=== PATIENT | female | born 1950 | race Caucasian/White ===

== ENCOUNTER → 2017-11-14 | Outpatient (CLI) | payer MEDICARE, OTHER ==
[2014-02-04 09:01] VITALS: BMI 36.4
[~2017-11-14] MED LIST: ALB0.5 INH; AMI10 PO; AMIT-104 PO; AZIT500T47 PO; CA C1TAB6 PO; CETI-175 PO; CETI10CA8 PO; CHOL10005 PO; CHOL200021 PO; CLAR-1 PO; CLIN300C99 PO; CLOB15OI16 TP; DIAZ2TAB74 PO; FLUT16SP20 NS; GUAR1TAB15 PO; HYDR12.556 PO; HYDR12.558 PO; LEV112 PO; LEV125 PO; LEV75 PO; LEVO137T23 PO; LEVO500T83 PO; LIS10 PO; LISI-353 PO; LISI20TA29 PO; METR-160 PO; MON10 PO; NYST15CR32 TP; OND4 PO; OXYC1TAB54 PO; PANT40TA65 PO; PRED20TA6 PO; RANI-375 PO; SCOT TD; SERT-184 PO; SIM10 PO; SIMV-49 PO; TRAM-420 PO; [UNRECOGNIZED DRUG - CODE] PO; [UNRECOGNIZED DRUG - OTHER]
--- NOTE | 2017-11-14 14:37 | RADIOLOGY IMAGING REPORT ---
FACILITY: [facility] [place] PATIENT NAME: Jyoti Cochran : 1950 MR: [id number] V: [id number] EXAM DATE: ORDERING PHYSICIAN: ROSIBEL LE TECHNOLOGIST: [place] [facility] [place]: [place]yoti Cochran : 1950 Visit/Account:[id number] Date of Sevice: 11/14/2017 DEXA Scan Clinical history: Postmenopausal. Comparison: DEXA scan from 10/22/2013. LUMBAR SPINE: The bone mineral density (BMD) measured from L1-L4 correlates with a Z-score of 1 and a T-score of 0. 2 which is Normal as defined by the World Health Organization. The corresponding risk of fracture in the lumbar spine is Not increased compared with a young adult reference population. This value has increase by five % since the prior study. More than 5% change is considered significant. HIP: Bone mineral density (BMD) measured in the LEFT total hip region correlates with a Z-score 0.5 and a T-score of -0.3 which is normal as defined by the World Health Organization. The corresponding risk of fracture in the hip is Not i ncreased compared to a young adult reference population. This value has decrease by 0.5 % since the p rior study. More than 5% change is considered significant. T score left femoral neck -1.7 Bone mineral density (BMD) measured in the Femoral Neck region measures 0.795 g/cm?. IMPRESSION: 1. Lumbar spine: Normal. There has been 5% increase in the bone mineral density since the previous exam. 2. Left Total Hip: Normal. There has been 0.5% decrease in the bone mineral density since the previ ous exam. 3. Femoral Neck: Bone Mineral Density is 0.795 g/cm? The next DEXA scan of this patient should include the following sites: L1-L4 and the left hip. FRAX? WHO Fracture Risk Assessment Tool link: <http://www.shef.ac.uk/FRAX/tool.jsp?locationValue=9> PLEASE NOTE: 1) The World Health Organization defines low BMD as follows: T-score Normal > -1 Osteopenia < -1 and > -2.5 Osteoporosis < -2.5 without fractures Established osteoporosis < -2.5 with fractures 2) In general, you may wish to consider: Diagnosis Treatment Follow-up DEXA Normal BMD Prevention 2-3 years Osteopenia Prevention/therapy 1-2 years Osteoporosis Therapy Yearly 3) Fracture risk estimated from the T-score is more accurate for vertebral fractures (often spontane ous) than for hip fractures. Report Dictated By: Shanthi Casas MD at 11/14/2017 2:32 PM Report E-Signed By: Shanthi Casas MD at 11/14/2017 2:34 PM VASILEN:REKHAVVani
--- NOTE | 2017-11-15 10:29 | RADIOLOGY IMAGING REPORT ---
FACILITY: [facility] [place] PATIENT NAME: SILAS HERNANDEZ : [id number] MR: [id number] V: [id number] EXAM DATE: ORDERING PHYSICIAN: ROSIBEL LE TECHNOLOGIST: Ceci Duff PROCEDURE:BILATERAL DIGITAL SCREENING MAMMOGRAM WITH CAD ASSISTED INTERPRETATION & 3D TOMOSYNTHESIS COMPARISON:Prior mammograms 10/29/15, 09/13/12 INDICATIONS:screening FINDINGS: Mildly heterogeneous fibroglandular tissue is seen throughout the breasts. The parenchymal pattern has remained stable allowing for difference in mammographic technique & patient positioning. There is no evidence of malignant appearing mass, malignant appearing calcifications or other secondary sign of malignancy in either breast. DIAGNOSTIC CATEGORY 1--NEGATIVE. RECOMMENDATIONS: ROUTINE MAMMOGRAM AND CLINICAL EVALUATION. IMPRESSION: BIRADS 1: Negative No significant abnormality is seen. Dictated by: Shanthi Casas M.D. on 11/14/2017 at 17:10 Transcribed by: DUYEN on 11/15/2017 at 8:01 Approved by: Shanthi Casas M.D. on 11/15/2017 at 10:28 [facility]
== END ==
LOC: MAMO 03:31
PROVIDERS: ATTEND Nurse Practitioner Family
DX: Z13.820 Encounter for screening for osteoporosis (principal); Z12.31 Encounter for screening mammogram for malignant neoplasm of breast; Z78.0 Asymptomatic menopausal state
CPT/HCPCS: 77063; 77067; 77080

== ENCOUNTER → 2018-05-18 | Outpatient (CLI) | payer MEDICARE, OTHER ==
[2014-02-04 09:01] VITALS: BMI 36.4
[~2018-05-18] MED LIST changes: +FLU180SY11 IM; +HALO15OI15 TP; -METR-160 PO; +METR500T54 PO
[2018-05-18 12:05] LABS: PLATELET COUNT, AUTOMATED 244 K/uL (150-450)
== END ==
LOC: LAB 11:47
PROVIDERS: ATTEND Nurse Practitioner Family
DX: R50.9 Fever, unspecified (principal); W57.XXXA Bitten or stung by nonvenomous insect and other nonvenomous arthropods, initial encounter; W55.01XA Bitten by cat, initial encounter
CPT/HCPCS: 36415; 85025; 86140; 86618; 86788; 86789

== ENCOUNTER 2018-09-10 04:27 | Emergency (ER) | payer MEDICARE, OTHER ==
[2014-02-04 09:01] VITALS: Wt 93.0 kg
[~2018-09-10 04:27] MED LIST changes: -LOR5/325 PO; -ONDA4TAB9 PO
--- NOTE | 2018-09-10 04:40 | ER Report ---
History and Physical Time Seen By MD: 04:36 HPI/ROS CHIEF COMPLAINT: Woke up with shortness of breath, right arm pain, chest pain HISTORY OF PRESENT ILLNESS: 68-year-old female with no history of lung or cardiac disease brought in by EMS with stable vital signs. Patient woke up with shortness of breath and 9/10 chest and right arm burning pain. Patient undergoing right arm physical therapy for right shoulder injury, lifting tires into back of her car. She reports no infectious symptoms. Patient notes yesterday afternoon her right ankle was stiff and swollen. It is resolved today. She notes no calf or leg swelling. EMS administered aspirin in route. She feels much better on arrival to the ER. Her symptoms have nearly resolved except some residual nausea. She had no diaphoresis. Patient has a history of hypertension, hypothyroidism, hyperlipidemia. Patient admits low back pain for several weeks intermittently. REVIEW OF SYSTEMS: Respiratory: As above Cardiovascular: As above Gastrointestinal: No vomiting, no abdominal pain. Musculoskeletal: No back pain. Allergies: Coded Allergies: Penicillins (Verified Allergy, Severe, HIVES, LOSS OF CONSCIOUSNESS, 09/10/18) codeine (Verified Allergy, Intermediate, HALLUCINATIONS, 09/10/18) ranitidine (Unverified Allergy, Intermediate, HIVES, 09/10/18) Sulfa (Sulfonamide Antibiotics) (Verified Allergy, Mild, HIVES, NAUSEA AND VOMITTING, 09/10/18) Tetanus Vaccines and Toxoid (Verified Allergy, Mild, FEVER AND SWELLING, 09/10/18) Wheat Flour (Verified Allergy, Mild, 09/10/18) peanut (Verified Allergy, Mild, 09/10/18) tomato (Verified Allergy, Mild, 09/10/18) levofloxacin (Unverified Allergy, Unknown, 09/10/18) Uncoded Allergies: PT REPORTS MULTIPLE ALLERGIES TO ANIMALS, MOSTLY RASHES/HIVES (Allergy, Mild, 12/30/08) HORSE SERUM (Allergy, Unknown, 02/04/14) MUSHROOM (Allergy, Unknown, 02/04/14) Home Meds Active Scripts Hydrocodone Bit/Acetaminophen (HYDROCODON-ACETAMINOPHEN 5-325) 1 Each Tablet, 1 EACH PO Q4-6H PRN for PAIN, #12 TAKE ONE TABLET BY MOUTH EVERY 4-6 HOURS NEEDED FOR PAIN Prov:ROD NAVAS DO 09/10/18 Ondansetron 4 Mg Odt (ONDANSETRON 4 MG ODT) 4 Mg Tab.rapdis, 4 MG PO Q6H PRN for NAUSEA/VOMITING, #12 TAB Prov:ELOISERODMaureen Dukes DO 09/10/18 Clobetasol Propionate (CLOBETASOL PROPIONATE) 15 Gm Oint...g., 0 TP QHS for 30 Days, #1 TUBE 0 Refills Prov:TOBI BISHOP MD 06/15/18 Halobetasol Propionate (HALOBETASOL PROPIONATE) 15 Gm Oint...g., 15 GM TP weekly, #1 TUBE 4 Refills Apply a thin layer of ointment to affected area once per week Prov:TOBI BISHOP MD 01/03/18 Lisinopril/Hydrochlorothiazide (LISINOPRIL-HCTZ 20-12.5 MG TAB) 1 Each Tablet, 1 EACH PO DAILY, #90 TAB 4 Refills Prov:ROSIBEL LE APRN-C 11/04/17 NYSTATIN 837851 UNT/ML Topical Cream (NYSTATIN 656173 UNT/ML Topical Cream) 15 Gm Cream..g., 1 JEFE TP TID, #60 GM 1 Refill Prov:ROSIBEL LE APRNP-C 11/04/17 Levothyroxine Sodium (LEVOTHYROXINE SODIUM) 0.125 Mg Tab, 0.125 MG PO QDAY, #90 TAB 4 Refills Prov:ROSIBEL LE APRNP-C 11/04/17 Sertraline Hcl (SERTRALINE HCL) 50 Mg Tablet, 1 TAB PO QDAY, #90 TAB 4 Refills Prov:ROSIBEL LE APRNP-C 11/04/17 Simvastatin (SIMVASTATIN) 20 Mg Tablet, 1 TAB PO HS, #90 TAB 4 Refills Prov:ROSIBEL LE APRNP-C 11/04/17 Reported Medications Vit B Comp & C/Calcium Carb (GNP B-COMPLEX TABLET) 1 Each Tablet, 1 EACH PO QDAY 05/29/17 Cholecalciferol (Vitamin D3) (VITAMIN D3) 1,000 Unit Tablet, 1000 UNIT PO QDAY, TAB 05/29/17 Guar Gum (FIBER) Unknown Strength Tab.chew, PO, TAB.CHEW 10/11/14 Past Medical/Surgical History Past Medical History Cardiovascular: Reports hx of: hyperlipidemia hypertension Respiratory: Reports hx of: asthma Gastrointestinal: Reports hx of: GERD Age at menopause: 49 Musculoskeletal: Reports hx of: fibromyalgia fractures (right wrist) neck pain osteopenia Integumentary: Reports hx of: rosacea Endocrine: Reports hx of: hypothyroidism Past Surgical History Gynecologic: Reports hx of: hysterectomy (1979 - menomettorrhagia) Musculoskeletal: Reports hx of: arthroscopy Reviewed Nurses Notes: Yes Old Medical Records Reviewed: Yes Hx Smoking: No Smoking Status: Never Smoker Hx Substance Use Disorder: No Hx Alcohol Use: No Constitutional Vital Sign - Last 24 Hours 09/10/18 09/10/18 09/10/18 09/10/18 04:36 05:12 05:27 05:36 Temp 98.5 Pulse 72 68 67 Resp 14 14 13 B/P (MAP) 149/83 133/78 (96) Pulse Ox 91 89 91 O2 Delivery Room Air 09/10/18 09/10/18 09/10/18 09/10/18 05:42 05:46 05:57 06:12 Pulse 73 62 70 Resp 14 9 15 Pulse Ox 85 95 97 O2 Flow Rate 2.0 09/10/18 09/10/18 09/10/18 09/10/18 06:24 06:29 06:30 06:44 Pulse 71 70 Resp 12 15 B/P (MAP) 141/75 (97) 147/62 (90) Pulse Ox 97 97 09/10/18 09/10/18 09/10/18 09/10/18 06:59 07:00 07:14 07:29 Pulse 76 70 ??? Resp 17 16 12 B/P (MAP) 141/69 (93) Pulse Ox 99 97 94 09/10/18 09/10/18 09/10/18 09/10/18 07:30 07:44 07:59 08:00 Pulse 72 72 Resp 13 16 B/P (MAP) 146/72 (96) 131/84 (100) Pulse Ox 97 93 Physical Exam General Appearance: The patient is alert, has no immediate need for airway protection and no current signs of toxicity. Vital signs stable, afebrile, pulse ox normal HEENT: Pupils equal and round no injection. Oropharynx without redness or exudate Respiratory: Chest is non tender, lungs are clear to auscultation. No chest wall tenderness Cardiac: regular rate and rhythm, no murmur Gastrointestinal: Abdomen is soft and non tender, no masses, bowel sounds normal. Musculoskeletal: Neck: Neck is supple and non tender. No lymphadenopathy, no JVD Extremities have full range of motion and are non tender. Skin: No rashes or lesions. DIFFERENTIAL DIAGNOSIS: After history and physical exam differential diagnosis was considered for shortness of breath including but not limited to pulmonary infectious process, COPD, asthma, pulmonary embolus and congestive heart failure. Additionally,chest pain including but not limited to myocardial ischemia, pericarditis pulmonary embolus, chest wall pain, pleural inflammation and pulmonary infectious causes. Medical Decision Making Data Points Result Diagram: 09/10/18 0407 09/10/18 0407 Laboratory Hematology Test 09/10/18 04:07 09/10/18 07:29 Red Blood Count 5.16 M/uL (4.17-5.56) Mean Corpuscular Volume 87.9 fL (80.0-96.0) Mean Corpuscular Hemoglobin 29.4 pg (26.0-33.0) Mean Corpuscular Hemoglobin Concent 33.5 g/dL (32.0-36.0) Red Cell Distribution Width 13.5 % (11.5-14.5) Mean Platelet Volume 9.5 fL (7.2-11.1) Neutrophils (%) (Auto) 64.4 % (39.4-72.5) Lymphocytes (%) (Auto) 23.9 % (17.6-49.6) Monocytes (%) (Auto) 6.8 % (4.1-12.4) Eosinophils (%) (Auto) 3.9 % (0.4-6.7) Basophils (%) (Auto) 1.0 % (0.3-1.4) Nucleated RBC Relative Count (auto) 0.0 /100WBC Neutrophils # (Auto) 4.6 K/uL (2.0-7.4) Lymphocytes # (Auto) 1.7 K/uL (1.3-3.6) Monocytes # (Auto) 0.5 K/uL (0.3-1.0) Eosinophils # (Auto) 0.3 K/uL (0.0-0.5) Basophils # (Auto) 0.1 K/uL (0.0-0.1) Nucleated RBC Absolute Count (auto) 0.00 K/uL D-Dimer Quantitative (PE/DVT) 0.31 ug/ml (0-0.50) Sodium Level 141 mmol/L (137-145) Potassium Level 3.5 mmol/L (3.5-5.0) Chloride Level 106 mmol/L (98-107) Carbon Dioxide Level 27 mmol/L (22-31) Blood Urea Nitrogen 21 mg/dl (7-18) Creatinine 0.80 mg/dl (0.52-1.04) Glomerular Filtration Rate Calc > 60.0 Random Glucose 108 mg/dl (75-110) Calcium Level 9.3 mg/dl (8.4-10.2) Total Bilirubin 0.4 mg/dl (0.2-1.3) Aspartate Amino Transf (AST/SGOT) 23 U/L (0-35) Alanine Aminotransferase (ALT/SGPT) 27 U/L (0-56) Alkaline Phosphatase 79 U/L (0-126) B-Type Natriuretic Peptide 20 pg/ml (0-100) Total Protein 7.6 g/dl (6.3-8.2) Albumin 4.3 g/dl (3.5-5.0) Lipase 1443 U/L (23-300) Troponin I < 0.012 ng/ml Chemistry Test 09/10/18 04:07 09/10/18 07:29 White Blood Count 7.2 k/uL (4.5-11.0) Red Blood Count 5.16 M/uL (4.17-5.56) Hemoglobin 15.2 g/dL (12.0-16.0) Hematocrit 45.3 % (34.0-47.0) Mean Corpuscular Volume 87.9 fL (80.0-96.0) Mean Corpuscular Hemoglobin 29.4 pg (26.0-33.0) Mean Corpuscular Hemoglobin Concent 33.5 g/dL (32.0-36.0) Red Cell Distribution Width 13.5 % (11.5-14.5) Platelet Count 247 K/uL (150-450) Mean Platelet Volume 9.5 fL (7.2-11.1) Neutrophils (%) (Auto) 64.4 % (39.4-72.5) Lymphocytes (%) (Auto) 23.9 % (17.6-49.6) Monocytes (%) (Auto) 6.8 % (4.1-12.4) Eosinophils (%) (Auto) 3.9 % (0.4-6.7) Basophils (%) (Auto) 1.0 % (0.3-1.4) Nucleated RBC Relative Count (auto) 0.0 /100WBC Neutrophils # (Auto) 4.6 K/uL (2.0-7.4) Lymphocytes # (Auto) 1.7 K/uL (1.3-3.6) Monocytes # (Auto) 0.5 K/uL (0.3-1.0) Eosinophils # (Auto) 0.3 K/uL (0.0-0.5) Basophils # (Auto) 0.1 K/uL (0.0-0.1) Nucleated RBC Absolute Count (auto) 0.00 K/uL D-Dimer Quantitative (PE/DVT) 0.31 ug/ml (0-0.50) Glomerular Filtration Rate Calc > 60.0 Calcium Level 9.3 mg/dl (8.4-10.2) Total Bilirubin 0.4 mg/dl (0.2-1.3) Aspartate Amino Transf (AST/SGOT) 23 U/L (0-35) Alanine Aminotransferase (ALT/SGPT) 27 U/L (0-56) Alkaline Phosphatase 79 U/L (0-126) B-Type Natriuretic Peptide 20 pg/ml (0-100) Total Protein 7.6 g/dl (6.3-8.2) Albumin 4.3 g/dl (3.5-5.0) Lipase 1443 U/L (23-300) Troponin I < 0.012 ng/ml Coagulation Test 09/10/18 04:07 D-Dimer Quantitative (PE/DVT) 0.31 ug/ml EKG/Imaging EKG Interpretation 12 lead EK Rhythm: normal sinus rhythm [place]: normal QRS: normal ST segments: There are new inverted T waves in V1 and V2 that were not present on previous EKG dated 04/22/15 Imaging X-ray: Two-view chest x-ray was obtained. I viewed the images myself on the PACS system. My interpretation of the images is: No infiltrate, no effusion, normal mediastinum., Comparison to previous chest x-ray dated 02/07/14, no significant change. The radiologist interpretation had no clinically significa nt variation from this interpretation. ED Course/Re-evaluation Clinical Indication for ER IV: IV Access ED Course Patient was admitted to an examination room. H&P was done. The differential diagnosis was considered. Patient with back pain, right shoulder pain, shortness of breath waking her from sleep. Diagnostic evaluation was undertaken. Patient's immediate EKG showed subtle inverted T waves in V1 and V2 that appear to be new from previous EKG dated 04/22/15. Patient with continued nausea. Her diagnostic studies returned with a normal d-dimer, normal troponin, normal BMP. Laboratory studies are otherwise unremarkable. Because of her persistent nausea. I added a lipase to her diagnostic studies, which returned elevated at 1443. Patient was medicated with Zofran for her nausea. Because of her EKG changes, I think she needs a 3 hour troponin, which was negative She was offered admission for her pancreatitis. She would prefer to go home. Decision to Disposition Date: Sep 10, 2018 Decision to Disposition Time: 05:56 Depart Departure Latest Vital Signs Vital Signs Date Time Temp Pulse Resp B/P (MAP) Pulse Ox O2 Delivery O2 Flow Rate FiO2 09/10/18 08:00 131/84 (100) 09/10/18 07:59 72 16 93 09/10/18 05:46 2.0 09/10/18 04:36 98.5 Room Air Impression: Primary Impression: Pancreatitis Additional Impression: Right shoulder pain Condition: Improved Disposition: HOME OR SELF-CARE Referrals: ROSIBEL LE APRN ENDOSCOPY NURSE-C (PCP) New Scripts Hydrocodone Bit/Acetaminophen (HYDROCODON-ACETAMINOPHEN 5-325) 1 Each Tablet 1 EACH PO Q4-6H PRN for PAIN, #12 TAKE ONE TABLET BY MOUTH EVERY 4-6 HOURS NEEDED FOR PAIN Prov: ROD NAVAS DO 09/10/18 Ondansetron 4 Mg Odt (ONDANSETRON 4 MG ODT) 4 Mg Tab.rapdis 4 MG PO Q6H PRN for NAUSEA/VOMITING, #12 TAB Prov: ROD NAVAS DO 09/10/18 Patient Instructions: Pancreatitis (ED) Additional Instructions: Follow clear liquid diet for 24-48 hours, then advance to the brat diet, bananas, rice, applesauce and toast Avoid fatty food, greasy foods, vegetables and dairy for 72 hours Follow-up with your primary care physician for repeat evaluation of your lipase and likely ultrasound of your right upper quadrant, early next week Return to the ER for any worsening Problem Qualifiers Primary Impression: Pancreatitis Chronicity: acute Pancreatitis type: unspecified pancreatitis type Acute pancreatitis complication: unspecified Qualified Codes: K85.90 - Acute pancreatitis without necrosis or infection, unspecified Additional Impression: Right shoulder pain Chronicity: chronic Qualified Codes: M25.511 - Pain in right shoulder; G89.29 - Other chronic pain ROD NAVAS DO Sep 10, 2018 04:40
[2018-09-10 05:07] LABS: PLATELET COUNT, AUTOMATED 247 K/uL (150-450)
[2018-09-10] MEDS ORDERED: ONDANSETRON 4 MG/2 ML VIAL ONE (05:35)
[2018-09-10] MEDS ORDERED: ONDANSETRON 4 MG/2 ML VIAL IVP ONE (05:35)
--- NOTE | 2018-09-10 05:38 | RADIOLOGY IMAGING REPORT ---
FACILITY: [facility] PATIENT NAME: Jyoti Cochran : 1950 MR: [id number] V: [id number] EXAM DATE: ORDERING PHYSICIAN: ROD NAVAS TECHNOLOGIST: Location: [facility] [place] Patient: Jyoti Cochran : 1950 Visit/Account:[id number] Date of Sevice: 09/10/2018 CHEST PA AND LAT HISTORY: Chest pain for one day. COMPARISON: 02/07/2014. TECHNIQUE: PA and lateral views of the chest. FINDINGS: Pulmonary/pleura: Lungs are clear. There is no pneumothorax or pleural effusion. Cardiomediastinal: Cardiac and mediastinal silhouettes are within normal limits. Bones/soft tissues: No acute osseous abnormality. There is a slight rightward curvature of the lower thoracic spine. The visible abdomen is normal. IMPRESSION: 1. No acute cardiopulmonary process. Report Dictated By: Janeth Chaves at 09/10/2018 5:22 AM Report E-Signed By: Janeth Chaves at 09/10/2018 5:24 AM WSN:[id number]
[2018-09-10] MEDS ORDERED: ONDA4TAB9 PO (05:59)
[2018-09-10] MEDS ORDERED: LOR5/325 PO (05:59)
--- NOTE | 2018-09-10 06:26 | EKG ---
[facility] PATIENT NAME: SILAS HERNANDEZ : [id number] MR: [id number] V: [id number] EXAM DATE: ORDERING PHYSICIAN: ROD NAVAS TECHNOLOGIST: JORGE LUIS Cunha Reason : Blood Pressure : / mmHG Vent. Rate : 068 BPM Atrial Rate : 068 BPM P-R Int : 134 ms QRS Dur : 086 ms QT Int : 436 ms P-R-T Axes : 025 042 052 degrees QTc Int : 463 ms Normal sinus rhythm ST and T wave abnormality, consider anterior ischemia Abnormal ECG When compared with ECG of 22-APR-2015 08:14, T wave inversion now evident in Anterior leads Confirmed by ATUL GARSIA ([id number]) on 09/10/2018 2:39:51 PM Referred By: Confirmed By:ATUL GARSIA
[2018-09-10] MEDS ORDERED: PROMETHAZINE 25 MG/ML 1 ML AMP IVP ONE (06:30)
[2018-09-10 08:00] VITALS: BP 131/84
== END 2018-09-10 08:15 | disposition home or self-care (01) ==
LOC: ER 04:49
DX: K85.90 Acute pancreatitis without necrosis or infection, unspecified (principal); M25.511 Pain in right shoulder; G89.29 Other chronic pain
CPT/HCPCS: 36415; 71046; 83690; 83880; 84484; 85025; 85379; 93005; 96374; 96375; 99284; J2405; J2550; 82040; 82247; 82310; 82374; 82435; 82565; 82947; 84075; 84132; 84155; 84295; 84450; 84460; 84520

== ENCOUNTER → 2018-09-10 | Outpatient (CLI) | payer MEDICARE, OTHER ==
[2014-02-04 09:01] VITALS: BMI 36.4
[~2018-09-10] MED LIST changes: +LOR5/325 PO; +METR500T15 PO; -METR500T54 PO; +ONDA4TAB9 PO
== END ==
LOC: AMB 04:05
PROVIDERS: ATTEND Nurse Practitioner
DX: R06.02 Shortness of breath (principal); M79.621 Pain in right upper arm; I49.9 Cardiac arrhythmia, unspecified
CPT/HCPCS: A0425; A0427

== ENCOUNTER → 2018-09-15 | Outpatient (CLI) | payer MEDICARE, OTHER ==
[2014-02-04 09:01] VITALS: BMI 36.4
[~2018-09-15] MED LIST changes: +LOR5/325 PO; +ONDA4TAB9 PO
[2018-09-15 09:55] LABS: PLATELET COUNT, AUTOMATED 254 K/uL (150-450)
[2018-09-15 10:07] LABS: LDL CHOLESTEROL 92 mg/dl
== END ==
LOC: LAB 09:20
PROVIDERS: ATTEND Nurse Practitioner Family
DX: K85.90 Acute pancreatitis without necrosis or infection, unspecified (principal)
CPT/HCPCS: 36415; 82040; 82150; 82247; 82310; 82374; 82435; 82465; 82565; 82947; 83690; 83718; 84075; 84132; 84155; 84295; 84450; 84460; 84478; 84520; 85025

== ENCOUNTER → 2018-09-19 | Outpatient (CLI) | payer MEDICARE, OTHER ==
[2014-02-04 09:01] VITALS: BMI 36.4
--- NOTE | 2018-09-19 08:33 | RADIOLOGY IMAGING REPORT ---
FACILITY: [facility] [place] PATIENT NAME: Jyoti Cochran : 1950 MR: [id number] V: [id number] EXAM DATE: ORDERING PHYSICIAN: ROSIBEL LE TECHNOLOGIST: Location: [facility] Patient: Jyoti Cochran : 1950 Visit/Account:[id number] Date of Sevice: 09/19/2018 GALLBLADDER History: 68 year female with history of pancreatitis. Comparison study: None Procedure: There has been satisfactory and complete grayscale ultrasonic evaluation of the abdomen. Findings: Liver: The liver has diffusely increased echotexture perhaps related to fatty infiltration. There is no ascites. There are no liver masses. There is hepatopedal blood flow in the main portal vein. Biliary: The gallbladder is normal and there is no gallstone disease or biliary ductal dilatation. T he sonographic Garcia sign is negative. The common bile duct measures 4.1 mm. Pancreas: Normal. No peripancreatic fluid collections seen. Kidneys: There is no hydronephrosis on the right side. The right intrarenal collecting system may be partially duplicated. Aorta and IVC: Flow is identified in both the aorta and IVC. IMPRESSION: 1. Normal gallbladder without gallstone disease or biliary ductal dilatation. 2. Mildly increased echotexture of the liver somewhat suggestive of fatty infiltration. 3. No ascites. Report Dictated By: Barrie Irene MD at 09/19/2018 8:27 AM Report E-Signed By: Barrie Irene MD at 09/19/2018 8:29 AM WSN:[email or web address]
== END ==
LOC: US 01:43
PROVIDERS: ATTEND Nurse Practitioner Family
DX: K85.90 Acute pancreatitis without necrosis or infection, unspecified (principal)
CPT/HCPCS: 76705

== ENCOUNTER → 2018-11-13 | Outpatient (CLI) | payer MEDICARE, OTHER ==
[2014-02-04 09:01] VITALS: BMI 36.4
[2018-11-13 16:05] LABS: PLATELET COUNT, AUTOMATED 228 K/uL (150-450)
[2018-11-13 16:08] LABS: LDL CHOLESTEROL 84 mg/dl
== END ==
LOC: LAB 15:14
PROVIDERS: ATTEND Nurse Practitioner Family
DX: Z00.00 Encounter for general adult medical examination without abnormal findings (principal); G47.19 Other hypersomnia; R47.02 Dysphasia; M79.7 Fibromyalgia; E03.9 Hypothyroidism, unspecified; I10 Essential (primary) hypertension; E78.5 Hyperlipidemia, unspecified
CPT/HCPCS: 36415; 82040; 82247; 82310; 82374; 82435; 82465; 82565; 82947; 83718; 84075; 84132; 84155; 84295; 84443; 84450; 84460; 84478; 84520; 85025; 85651; 86140

== ENCOUNTER → 2018-12-11 | Outpatient (CLI) | payer MEDICARE, OTHER ==
[2014-02-04 09:01] VITALS: BMI 36.4
[~2018-12-11] MED LIST changes: +IOPAMIDOL 76% 100 ML INFUS BTL 100 ML ONE
--- NOTE | 2018-12-11 13:31 | RADIOLOGY IMAGING REPORT ---
FACILITY: [facility] [place] PATIENT NAME: Jyoti Cochran : 1950 MR: [id number] V: [id number] EXAM DATE: ORDERING PHYSICIAN: ROSIBEL LE TECHNOLOGIST: Location: [facility] [place] Patient: Jyoti Cochran : 1950 Visit/Account:[id number] Date of Sevice: 12/11/2018 EXAMINATION: CT neck with IV contrast HISTORY: Dysphagia, hoarseness TECHNIQUE: CT was obtained through the neck following IV contrast administration. Sagittal and co jaden reformatted images were generated. 75 mL of IV Isovue-370 injected. One of the following dose optimization techniques was utilized in the performance of this exam: autom ated exposure control; adjustment of the mA and/or kV according to patient size; or use of iterative reconstruction technique. Specific details can be referenced in the facility's radiology CT exam ope rational policy. COMPARISON: None. FINDINGS: Parotid/submandibular and thyroid glands: Subcentimeter right thyroid nodule is statistically benign, otherwise normal. Pharyngeal and retropharyngeal soft tissues: Mild to moderate bilateral tonsillar pillar enlargement without apparent mass. Oral cavity and undercoat sprayer space soft tissues: Normal. Larynx/glottis and airway: Normal. Lymph nodes: Upper limits normal sized left level two lymph node. No enlarged or abnormal appearing neck lymph nodes. Vessels: Normal for age. Visualized orbits / brain: Chronically expanded and partially empty sella noted. Upper chest: Normal. Bones/sinuses/mastoid air cells: Multilevel cervical spine facet arthropathy and degenerative foramin al narrowing. IMPRESSION: 1. Mild to moderate bilateral tonsillar pillar enlargement is favored to be reactive/benign. No dis crete mass in this area. 2. No enlarged or abnormal appearing neck lymph nodes. 3. Subcentimeter right thyroid nodule is statistically benign. 4. Otherwise normal for age neck CT.. Report Dictated By: Carlos Delong MD at 12/11/2018 1:21 PM Report E-Signed By: Carlos Delong MD at 12/11/2018 1:28 PM WSN:[id number]
== END ==
LOC: CT 00:44
PROVIDERS: ATTEND Nurse Practitioner Family
DX: R47.02 Dysphasia (principal); R59.0 Localized enlarged lymph nodes; R49.0 Dysphonia
CPT/HCPCS: 70491; Q9967

== ENCOUNTER → 2018-12-12 | Outpatient (CLI) | payer MEDICARE, OTHER ==
[2014-02-04 09:01] VITALS: BMI 36.4
[~2018-12-12] MED LIST changes: -IOPAMIDOL 76% 100 ML INFUS BTL 100 ML ONE; -RANI-375 PO; +RANI-886 PO
--- NOTE | 2018-12-12 17:49 | RADIOLOGY IMAGING REPORT ---
FACILITY: [facility] PATIENT NAME: Jyoti Cochran : 1950 MR: [id number] V: [id number] EXAM DATE: ORDERING PHYSICIAN: ROSIBEL LE TECHNOLOGIST: Location: [facility] - [place] Patient: Jyoti Cochran : 1950 Visit/Account:[id number] Date of Sevice: 12/12/2018 Exam type: ESOPH VIDEO SWALLOWING History: dyspahgia, lymphadenopathy and hoarse voice Comparison: None. Findings: The medial esophagram was performed by the speech pathologist. For scopic assistance was provided. Patient received thin barium and various food substances and a barium tablet. Please see the speech pathologist report for complete details. The dose area product was 322.21 micro-Wild per meter squar ed. IMPRESSION: 1. As above Report Dictated By: Shanthi Casas MD at 12/12/2018 5:23 PM Report E-Signed By: Shanthi Casas MD at 12/12/2018 5:44 PM WSN:[id number]
--- NOTE | 2018-12-13 11:06 | SLP MODIFIED BARIUM SWALLOW ---
MODIFIED BARIUM SWALLOW STUDY REPORT Ordering Physician: Keyla Srinivasan Aprn Record Press Tender-C Clinician: Sanjuanita Hayes MS, CCC-ENGINEERING DESIGN SUPERVISOR Type of Assessment: [facility] [place] Patient: Jyoti Cochran : 1950, 68yo Evaluation Date: 12-12-18 BACKGROUND The patient is an 68 year-old female who presents for an outpatient modified barium swallow study (MBSS) due to history of dysphagia with increasing severity of symptoms including globus sensation, poor initiation, hoarse voice. The patient has a PMHx significant for GERD. She reports she is now largely symptom free d/t diet changes. She has no recent hx of pneumonia. MODIFIED BARIUM SWALLOW ASSESSMENT Diagnosis: dysphagia Past Medical Hx: GERD Pain with Swallow: Denies but does report intermittent sore throat LOC / Participation: Alert and cooperative. Follows instructions: Yes Orientation: A&O x4 Sialorrhea: No Xerostomia: No Oral Hygiene: WFL Supplemental Oxygen Use: No COPD Dx: No Overall Impression: Normal swallow mechanism. No dysphagia witnessed. No laryngeal penetration or aspiration witnessed. Pt does report symptoms consistent with possible esophageal dysphagia including globus sensation at mid thoracic esophagus and hoarse voice. In conjunction with radiology, the pt was seated in the lateral view. The following consistencies were trialed: thin liquids via cup sip, pureed solids, mechanically altered solids, advanced solids, mixed consistencies (thin liquids, mechanical soft foods), and a 1cm barium pill paired with thin liquids. Oral phase: WNL. No abnormal structure of function witnessed. Pharyngeal phase: WNL. No abnormal structure of function witnessed. Esophageal phase: WNL. No abnormal structure of function witnessed. Pt reports symptoms consistent with possible esophageal dysphagia including globus sensation at mid thoracic esophagus and hoarse voice. Penetration/Aspiration Scale (PAS)*: All trialed consistencies: Score of 1; Material does not enter airway *(Rosenbek et al. 1996) SUMMARY and RECOMMENDATIONS Normal swallow mechanism. No oral/pharyngeal/esophageal dysphagia witnessed. No laryngeal penetration/aspiration witnessed. Aspiration Risk: Low; no abnormal structure/function witnessed. Dysphagia Outcome Severity Scale: 0; Normal swallowing mechanism. Pt reports symptoms consistent with possible esophageal dysphagia including globus sensation at mid thoracic esophagus and hoarse voice. RECOMMENDATIONS Speech Therapy Need : Not at this time Further Assessment: Esophagram may be appropriate d/t symptoms consistent with esophageal dysphagia Thank you for this referral. Please call [phone] to contact speech therapy at [facility] Sanjuanita Hayes M.S., [facility]-ENGINEERING DESIGN SUPERVISOR Speech Therapist JOSE
== END ==
LOC: RAD 00:34
PROVIDERS: ATTEND Nurse Practitioner Family
DX: R47.02 Dysphasia (principal); R59.0 Localized enlarged lymph nodes; R49.0 Dysphonia
CPT/HCPCS: 74230

== ENCOUNTER → 2018-12-30 | Outpatient (CLI) | payer MEDICARE, OTHER ==
[2014-02-04 09:01] VITALS: BMI 36.4
[~2018-12-30] MED LIST changes: +LISI-374 PO
== END ==
LOC: RESP 20:55
PROVIDERS: ATTEND Nurse Practitioner Family
DX: G47.33 Obstructive sleep apnea (adult) (pediatric) (principal); G47.36 Sleep related hypoventilation in conditions classified elsewhere; G47.61 Periodic limb movement disorder

== ENCOUNTER 2019-01-07 18:33 | Emergency (ER) | payer MEDICARE, OTHER ==
[2014-02-04 09:01] VITALS: Wt 89.4 kg
[2019-01-07] MEDS ORDERED: LORazepam 2 MG/ML VIAL IVP ONE (18:55)
[2019-01-07] MEDS ORDERED: methylPREDNIS SUCC 125 MG/2ML IVP ONE (19:00)
[2019-01-07] MEDS ORDERED: diphenhydrAMINE 50 MG/ML VIAL IVP ONE (19:00)
[2019-01-07] MEDS ORDERED: EPINEPHrine 0.3 MG SYR IM ONLY ONE (19:00)
--- NOTE | 2019-01-07 19:03 | ER Report ---
History and Physical Time Seen By MD: 18:50 HPI/ROS CHIEF COMPLAINT: Allergic reaction HISTORY OF PRESENT ILLNESS: Patient is a 68-year-old female who has a reported allergy, she states that she was sitting at home and felt her throat and had difficulty breathing. This reason she came to emergency department for evaluation she was treated with 0.3 mg of IM epinephrine, 50 of IV Benadryl; 25 of IV Solu-Medrol and symptoms seemed to improve. Currently patient feels breathing is better denies any throat swelling denies any other symptoms at this time. REVIEW OF SYSTEMS: Constitutional: No fever, no chills. Eyes: No discharge. ENT: No sore throat. Cardiovascular: No chest pain, no palpitations. Respiratory: No cough, no shortness of breath. Gastrointestinal: No abdominal pain, no vomiting. Genitourinary: No hematuria. Musculoskeletal: No back pain. Skin: No rashes. Neurological: No headache. Allergies: Coded Allergies: Penicillins (Verified Allergy, Severe, HIVES, LOSS OF CONSCIOUSNESS, 09/10/18) codeine (Verified Allergy, Intermediate, HALLUCINATIONS, 09/10/18) ranitidine (Unverified Allergy, Intermediate, HIVES, 09/10/18) Sulfa (Sulfonamide Antibiotics) (Verified Allergy, Mild, HIVES, NAUSEA AND VOMITTING, 09/10/18) Tetanus Vaccines and Toxoid (Verified Allergy, Mild, FEVER AND SWELLING, 09/10/18) Wheat Flour (Verified Allergy, Mild, 09/10/18) peanut (Verified Allergy, Mild, 09/10/18) tomato (Verified Allergy, Mild, 09/10/18) levofloxacin (Unverified Allergy, Unknown, 09/10/18) Uncoded Allergies: PT REPORTS MULTIPLE ALLERGIES TO ANIMALS, MOSTLY RASHES/HIVES (Allergy, Mild, 12/30/08) HORSE SERUM (Allergy, Unknown, 02/04/14) MUSHROOM (Allergy, Unknown, 02/04/14) Home Meds Active Scripts Epinephrine (EPINEPHRINE) 0.3 Mg/0.3 Ml Pen.injctr, 0.3 MG IM ONCE PRN for allergic reaction, #1 PEN 0 Refills Prov:NIKKI ALVAREZ MD 01/07/19 Lisinopril (LISINOPRIL) 40 Mg Tablet, 1 TAB PO QDAY, #90 TAB 3 Refills Prov:ROSIBEL LE APRN MANAGER MOUNTAIN-C 12/22/18 Levothyroxine Sodium (LEVOTHYROXINE SODIUM) 0.125 Mg Tab, 0.125 MG PO QDAY, #90 TAB 4 Refills Prov:ROSIBEL LE APRN MANAGER [employer]-C 12/22/18 Sertraline Hcl (SERTRALINE HCL) 50 Mg Tablet, 1 TAB PO QDAY, #90 TAB 4 Refills Prov:ROSIBEL LE APRN MANAGER [employer]-C 12/22/18 Simvastatin (SIMVASTATIN) 20 Mg Tablet, 1 TAB PO HS, #90 TAB 4 Refills Prov:ROSIBEL LE APRN MANAGER [employer]-C 12/22/18 Reported Medications Cholecalciferol (Vitamin D3) (VITAMIN D3) 1,000 Unit Tablet, 1000 UNIT PO QDAY, TAB 05/29/17 Guar Gum (FIBER) Unknown Strength Tab.chew, PO, TAB.CHEW 10/11/14 Discontinued Reported Medications Vit B Comp & C/Calcium Carb (GNP B-COMPLEX TABLET) 1 Each Tablet, 1 EACH PO QDAY 05/29/17 Discontinued Scripts Halobetasol Propionate (HALOBETASOL PROPIONATE) 15 Gm Oint...g., 15 GM TP weekly, #1 TUBE 4 Refills Apply a thin layer of ointment to affected area once per week Prov:TOBI BISHOP MD 01/03/18 Past Medical/Surgical History Multiple allergies Hx Smoking: No Smoking Status: Never Smoker Hx Substance Use Disorder: No Hx Alcohol Use: No Constitutional Vital Sign - Last 24 Hours 01/07/19 18:47 Temp 98.0 Pulse 79 Resp 28 B/P (MAP) 195/141 Pulse Ox 97 O2 Delivery Room Air Physical Exam General Appearance: The patient is alert, has no immediate need for airway protection and no current signs of toxicity. Eyes: Pupils equal and round no injection. Respiratory: Chest is non tender, lungs are clear to auscultation. Cardiac: regular rate and rhythm Gastrointestinal: Abdomen is soft and non tender, no masses, bowel sounds normal. Musculoskeletal: Neck: Neck is supple and non tender. Extremities have full range of motion and are non tender. Skin: No rashes or lesions. Medical Decision Making ED Course/Re-evaluation ED Course 01/07/2019 7:21:43 pm patient was observed in the emergency department without any further symptoms status post treatment. The patient is safe for discharge home. We will give prescription for EpiPen with instructions to return if symptoms worsen. Decision to Disposition Date: Jan 07, 2019 Decision to Disposition Time: 19:22 Depart Departure Latest Vital Signs Vital Signs Date Time Temp Pulse Resp B/P (MAP) Pulse Ox O2 Delivery O2 Flow Rate FiO2 01/07/19 18:47 98.0 79 28 195/141 97 Room Air Impression: Primary Impression: Allergic reaction Condition: Improved Disposition: HOME OR SELF-CARE Referrals: ROSIBEL LE APRN MANAGER [facility]-C (PCP) New Scripts Epinephrine (EPINEPHRINE) 0.3 Mg/0.3 Ml Pen.injctr 0.3 MG IM ONCE PRN for allergic reaction, #1 PEN 0 Refills Prov: NIKKI ALVAREZ MD 01/07/19 Patient Instructions: General Allergic Reaction (ED) Problem Qualifiers Primary Impression: Allergic reaction Encounter type: initial encounter Qualified Codes: T78.40XA - Allergy, unspecified, initial encounter NIKKI ALVAREZ MD Jan 07, 2019 19:03
[2019-01-07] MEDS ORDERED: FAMOTIDINE(*) 20MG/50ML PREMIX 50 ML IVPB ONE (19:05)
[2019-01-07] MEDS ORDERED: EPIN0.3P3 IM (19:26)
[2019-01-07 19:30] VITALS: BP 170/74
[2019-01-09] MEDS ORDERED: EPIN0.3P3 IM (13:09)
== END 2019-01-07 19:47 | disposition home or self-care (01) ==
LOC: ER 18:35
DX: T78.40XA Allergy, unspecified, initial encounter (principal)
CPT/HCPCS: 96372; 96374; 96375; 99284; J0171; J1200; J2060; J2930

== ENCOUNTER 2019-01-16 23:36 | Emergency (ER) | payer MEDICARE, OTHER ==
[2014-02-04 09:01] VITALS: BMI 36.4
[~2019-01-16 23:36] MED LIST changes: +EPIN0.3P3 IM
[2019-01-17] MEDS ORDERED: methylPREDNIS SUCC 125 MG/2ML IVP ONE (00:10)
[2019-01-17 00:30] VITALS: BP 174/84
--- NOTE | 2019-01-17 01:12 | ER Report ---
History and Physical Time Seen By MD: 23:54 Hx. of Stated Complaint: sob states that she feels like she is having an allergic reaction like last time she was here in the ER but she hasnt eaten anything with nuts. states that she feels like her thoat is getting tight HPI/ROS CHIEF COMPLAINT: sore throat, hoarse voice HISTORY OF PRESENT ILLNESS: pt presents thinking she may be having an allergic reaction to something. She was at home sitting and had not had food/drink for at least 4 hours. Denies new medications, though was doubled on her lisinopril dose 6 wks ago. Has had multiple similar events, last time 1 wk ago for which she was seen in ED. Did not take meds at home prior to arrival. Despite triage note, pt denies having difficulty breathing; states it was difficulty swallowing due to sore throat, that has resolved. Symptoms are moderate and gradually improving. REVIEW OF SYSTEMS: Constitutional: No fever, no chills. Eyes: No discharge. ENT: above Cardiovascular: No chest pain, no palpitations. Respiratory: No cough, no shortness of breath. Gastrointestinal: No abdominal pain, no vomiting. Genitourinary: no dysuria Musculoskeletal: No back pain. Skin: No rashes. Neurological: No headache. Remainder of the 14 system rev: Yes Allergies: Coded Allergies: Penicillins (Verified Allergy, Severe, HIVES, LOSS OF CONSCIOUSNESS, 09/10/18) codeine (Verified Allergy, Intermediate, HALLUCINATIONS, 09/10/18) ranitidine (Unverified Allergy, Intermediate, HIVES, 09/10/18) Sulfa (Sulfonamide Antibiotics) (Verified Allergy, Mild, HIVES, NAUSEA AND VOMITTING, 09/10/18) Tetanus Vaccines and Toxoid (Verified Allergy, Mild, FEVER AND SWELLING, 09/10/18) Wheat Flour (Verified Allergy, Mild, 09/10/18) peanut (Verified Allergy, Mild, 09/10/18) tomato (Verified Allergy, Mild, 09/10/18) levofloxacin (Unverified Allergy, Unknown, 09/10/18) Uncoded Allergies: PT REPORTS MULTIPLE ALLERGIES TO ANIMALS, MOSTLY RASHES/HIVES (Allergy, Mild, 12/30/08) HORSE SERUM (Allergy, Unknown, 02/04/14) MUSHROOM (Allergy, Unknown, 02/04/14) Home Meds Active Scripts Epinephrine (EPINEPHRINE) 0.3 Mg/0.3 Ml Pen.injctr, 0.3 MG IM ONCE PRN for allergic reaction, #1 PEN 0 Refills Prov:ROSIBEL LE APRN-Makayla 01/09/19 Lisinopril (LISINOPRIL) 40 Mg Tablet, 1 TAB PO QDAY, #90 TAB 3 Refills Prov:ROSIBEL LE APRN-C 12/22/18 Levothyroxine Sodium (LEVOTHYROXINE SODIUM) 0.125 Mg Tab, 0.125 MG PO QDAY, #90 TAB 4 Refills Prov:ROSIBEL LE APRN-C 12/22/18 Sertraline Hcl (SERTRALINE HCL) 50 Mg Tablet, 1 TAB PO QDAY, #90 TAB 4 Refills Prov:ROSIBEL LE APRN-C 12/22/18 Simvastatin (SIMVASTATIN) 20 Mg Tablet, 1 TAB PO HS, #90 TAB 4 Refills Prov:ROSIBEL LE APRN-C 12/22/18 Reported Medications Cholecalciferol (Vitamin D3) (VITAMIN D3) 1,000 Unit Tablet, 1000 UNIT PO QDAY, TAB 05/29/17 Guar Gum (FIBER) Unknown Strength Tab.chew, PO, TAB.CHEW 10/11/14 Reviewed Nurses Notes: Yes Old Medical Records Reviewed: Yes Hx Smoking: No Smoking Status: Never Smoker Hx Substance Use Disorder: No Hx Alcohol Use: No Constitutional Vital Sign - Last 24 Hours 01/16/19 01/16/19 01/16/19 01/17/19 23:37 23:41 23:46 00:00 Temp 98.0 Pulse 68 Resp 22 B/P (MAP) 197/127 (150) 197/127 194/89 (124) 185/93 (123) Pulse Ox 97 O2 Delivery Room Air 01/17/19 01/17/19 01/17/19 01/17/19 00:06 00:16 00:21 00:26 Pulse 58 58 ??? 57 Resp 16 16 12 Pulse Ox 94 95 89 01/17/19 01/17/19 01/17/19 01/17/19 00:30 00:30 00:31 00:36 Pulse 54 57 Resp 9 14 B/P (MAP) 174/84 (114) 174/84 (114) Pulse Ox 94 90 01/17/19 01/17/19 00:46 00:56 Pulse 54 60 Resp 14 16 Pulse Ox 95 94 Physical Exam General Appearance: The patient is alert, has no immediate need for airway protection and no signs of toxicity. slightly hoarse voice Eyes: Pupils equal and round no pallor or injection. ENT, Mouth: Mucous membranes are moist. No soft tissue edema Respiratory: There are no retractions, lungs are clear to auscultation. Cardiovascular: Regular rate and rhythm. no m/r/g Gastrointestinal: abdomen soft, ntnd Neurological: alert, oriented, no gross deficits Skin: Warm and dry, no rashes. Musculoskeletal: Neck is supple non tender. Extremities are nontender, nonswollen and have full range of motion. DIFFERENTIAL DIAGNOSIS: After history and physical exam differential diagnosis was considered for allergic reaction, anaphylaxis, acs, or other emergent cause of symptoms Medical Decision Making ED Course/Re-evaluation ED Course 68f presents with possible allergic reaction. Denies ingested f/b. No objective sgs noted; pt improves in ed stay; after monitoring, reasonble for d/c. Will f/u closely with her ENT for further allergy testing. Considered lisinopril as poss cause; pt will f/u with pcm regarding this possibility. Decision to Disposition Date: Jan 17, 2019 Decision to Disposition Time: 01:08 Depart Departure Latest Vital Signs Vital Signs Date Time Temp Pulse Resp B/P (MAP) Pulse Ox O2 Delivery O2 Flow Rate FiO2 01/17/19 00:56 60 16 94 01/17/19 00:30 174/84 (114) 01/16/19 23:41 98.0 Room Air Impression: Primary Impression: Allergic reaction Condition: Improved Disposition: HOME OR SELF-CARE Referrals: ROSIBEL LE APRN ALTERATION TAILOR APPRENTICE-C (PCP) 2 Days Patient Instructions: General Allergic Reaction (ED) Problem Qualifiers Primary Impression: Allergic reaction Encounter type: initial encounter Qualified Codes: T78.40XA - Allergy, unspecified, initial encounter NIKKI ARAUZ MD Jan 17, 2019 01:12
[2019-01-18] MEDS ORDERED: EPIN0.3P15 IM (14:04)
== END 2019-01-17 01:14 | disposition home or self-care (01) ==
LOC: ER 23:59
DX: T78.40XA Allergy, unspecified, initial encounter (principal)
CPT/HCPCS: 96374; 99283; J2930

== ENCOUNTER → 2019-01-18 | Outpatient (CLI) | payer MEDICARE, OTHER ==
[2014-02-04 09:01] VITALS: BMI 36.4
[~2019-01-18] MED LIST changes: +EPIN0.3P15 IM
== END ==
LOC: LAB 13:46
PROVIDERS: ATTEND Physician Assistant
DX: T78.40XA Allergy, unspecified, initial encounter (principal)
CPT/HCPCS: 36415; 86003

== ENCOUNTER → 2019-02-01 | Outpatient (CLI) | payer MEDICARE, OTHER ==
[2014-02-04 09:01] VITALS: BMI 36.4
[~2019-02-01] MED LIST changes: +BiPap
== END ==
LOC: LAB 16:17
PROVIDERS: ATTEND Nurse Practitioner Family
DX: G25.81 Restless legs syndrome (principal)
CPT/HCPCS: 36415; 82728; 83540; 83550

== ENCOUNTER → 2019-02-08 | Outpatient (CLI) | payer MEDICARE, OTHER ==
[2014-02-04 09:01] VITALS: BMI 36.4
[~2019-02-08] MED LIST changes: +BARIUM SULFATE 176 GM BTL PO ONE; +BARIUM SULFATE 340 GM POWD ONE
--- NOTE | 2019-02-08 13:09 | RADIOLOGY IMAGING REPORT ---
FACILITY: [facility] PATIENT NAME: Jyoti Cochran : 1950 MR: [id number] V: [id number] EXAM DATE: ORDERING PHYSICIAN: OCTAVIANO ANDREW TECHNOLOGIST: Location: [facility] [place] Patient: Jyoti Cochran : 1950 Visit/Account:[id number] Date of Sevice: 02/08/2019 THYROID HISTORY: ? thyroid nodule--right. Right thyroid enlargement COMPARISON: Correlation made with neck CT 12/11/2018 FINDINGS: SIZE: Right lobe: 3.5 x 1.1 x 1.1 cm Left lobe: 2.7 x 0.9 x 0.9 cm Isthmus: 2 mm Thyroid heterogeneity: Homogeneous. NODULES: Right lobe: * ISO to slightly hypoechoic nodule in the superior pole measures 5 x 5 x 6 mm. This does appear to have a partially calcified rim. Left lobe: * None discrete. Isthmus: * None discrete. VASCULARITY: Within normal limits. ADDITIONAL FINDINGS: None. IMPRESSION: 6 mm hypoechoic nodule with partially calcified border in the upper pole of the right lobe of the thy roid. This nodule is high suspicion and does not meet the criteria for biopsy based on size. Depend ing on the history, fine-needle aspiration could be considered regardless although obtaining a diagno stic sample may be difficult due to its small size. Close sonographic follow-up may also be consider ed. REFERENCE: 2015 [employer] Management Guidelines for Adult Patients with Thyroid Nodules and D ifferentiated Thyroid Cancer: The [employer] Guidelines Task Force on Thyroid Nodul es and Differentiated Thyroid Cancer. SONOGRAPHIC PATTERNS: * Benign: Purely cystic nodules (no solid component); estimated risk of malignancy <1 percent; no bi opsy recommended. * Very Low Suspicion: Spongiform or partially cystic nodules without any of the sonographic features described in low, intermediate, or high suspicion patterns; estimated risk of malignancy <3 percent; consider FNA at > 2 cm (Observation without FNA is also a reasonable option). * Low Suspicion: Isoechoic or hyperechoic solid nodule, or partially cystic nodule with eccentric so lid areas, without microcalcification, irregular margin or ETE (extra-thyroidal extension), or taller than wide shape; estimated risk of malignancy 5-10 percent; recommend FNA at >1.5 cm. * Intermediate Suspicion: Hypoechoic solid nodule with smooth margins without microcalcifications, E TE (extra-thyroidal extension), or taller than wide shape; estimated risk of malignancy 10-20 percent ; recommend FNA at > 1 cm. * High Suspicion: Solid hypoechoic nodule or solid hypoechoic component of a partially cystic nodule with one or more of the following features: irregular margins (infiltrative, microlobulated), microc alcifications, taller than wide shape, rim calcifications with small extrusive soft tissue component, evidence of ETE (extra-thyroidal extension); estimated risk of malignancy >70-90 percent; recommend FNA at > 1 cm. NOTES: * Although a sonographically suspicious subcentimeter thyroid nodule without evidence of extrathyroi justina extension or sonographically suspicious lymph nodes may be observed with close sonographic follow -up rather than pursuing immediate FNA, patient age and preference may modify decision-making. * A > 50% interval increase in nodule volume and/or development of new suspicious sonographic featur es are felt to be a valid reasons for potential re-aspiration of a nodule previously shown to have be nign FNA cytology. Report Dictated By: Marian Crump MD at 02/08/2019 12:56 PM Report E-Signed By: Marian Crump MD at 02/08/2019 1:01 PM WSN:[email or web address]
--- NOTE | 2019-02-08 15:27 | RADIOLOGY IMAGING REPORT ---
FACILITY: [facility] - [place] PATIENT NAME: Jyoti Cochran : 1950 MR: [id number] V: [id number] EXAM DATE: ORDERING PHYSICIAN: FLORIDALMA POP TECHNOLOGIST: Location: [facility] [place] Patient: Jyoti Cochran : 1950 Visit/Account:[id number] Date of Sevice: 02/08/2019 Exam type: XR UPPER GI SERIES W/O KUB History: GERD, dysphasia and early satiety Comparison: None. Findings: Double contrast upper GI series was performed with thick and thin barium and air contrast there is mi ld narrowing in the upper cervical esophagus. There is a small hiatal hernia with a very large amoun t of gastroesophageal reflux observed. Very mild narrowing at the lower esophageal sphincter. No ab normality of the stomach duodenal bulb or duodenal C-loop was seen. The fluoroscopy dose area produc t was 771.51 micro-Wild per meter squared IMPRESSION: 1. Small hiatal hernia with a very large amount of gastroesophageal reflux observed. There is very mild narrowing at the lower esophageal sphincter and mild narrowing in the upper cervical esophagus. The remainder the upper GI series was unremarkable. Report Dictated By: Shanthi Casas MD at 02/08/2019 3:17 PM Report E-Signed By: Shanthi Casas MD at 02/08/2019 3:19 PM WSN:[email or web address] JOSE
== END ==
LOC: RAD 00:46
PROVIDERS: ATTEND Surgery
DX: E04.9 Nontoxic goiter, unspecified (principal); K44.9 Diaphragmatic hernia without obstruction or gangrene; K21.9 Gastro-esophageal reflux disease without esophagitis; R11.10 Vomiting, unspecified; R13.10 Dysphagia, unspecified; R68.81 Early satiety
CPT/HCPCS: 74240; 76536

== ENCOUNTER → 2019-02-08 | Outpatient (CLI) | payer MEDICARE, OTHER ==
[2014-02-04 09:01] VITALS: BMI 36.4
[~2019-02-08] MED LIST changes: -BARIUM SULFATE 176 GM BTL PO ONE; -BARIUM SULFATE 340 GM POWD ONE
--- NOTE | 2019-02-19 14:20 | RADIOLOGY IMAGING REPORT ---
FACILITY: [facility] - [place] PATIENT NAME: Jyoti Cochran : 1950 MR: [id number] V: [id number] EXAM DATE: ORDERING PHYSICIAN: OCTAVIANO ANDREW TECHNOLOGIST: Location: [facility] - [place] Patient: Jyoti Cochran : 1950 Visit/Account:[id number] Date of Sevice: 02/08/2019 THYROID HISTORY: ? thyroid nodule--right. Right thyroid enlargement COMPARISON: Correlation made with neck CT 12/11/2018 FINDINGS: SIZE: Right lobe: 3.5 x 1.1 x 1.1 cm Left lobe: 2.7 x 0.9 x 0.9 cm Isthmus: 2 mm Thyroid heterogeneity: Homogeneous. NODULES: Right lobe: * ISO to slightly hypoechoic nodule in the superior pole measures 5 x 5 x 6 mm. This does appear to have a partially calcified rim. Left lobe: * None discrete. Isthmus: * None discrete. VASCULARITY: Within normal limits. ADDITIONAL FINDINGS: None. IMPRESSION: 6 mm hypoechoic nodule with partially calcified border in the upper pole of the right lobe of the thy roid. This nodule is high suspicion and does not meet the criteria for biopsy based on size. Depend ing on the history, fine-needle aspiration could be considered regardless although obtaining a diagno stic sample may be difficult due to its small size. Close sonographic follow-up may also be consider ed. REFERENCE: 2015 [place] [employer] Management Guidelines for Adult Patients with Thyroid Nodules and D ifferentiated Thyroid Cancer: The [place] [employer] Guidelines Task Force on Thyroid Nodul es and Differentiated Thyroid Cancer. SONOGRAPHIC PATTERNS: * Benign: Purely cystic nodules (no solid component); estimated risk of malignancy <1 percent; no bi opsy recommended. * Very Low Suspicion: Spongiform or partially cystic nodules without any of the sonographic features described in low, intermediate, or high suspicion patterns; estimated risk of malignancy <3 percent; consider FNA at > 2 cm (Observation without FNA is also a reasonable option). * Low Suspicion: Isoechoic or hyperechoic solid nodule, or partially cystic nodule with eccentric so lid areas, without microcalcification, irregular margin or ETE (extra-thyroidal extension), or taller than wide shape; estimated risk of malignancy 5-10 percent; recommend FNA at >1.5 cm. * Intermediate Suspicion: Hypoechoic solid nodule with smooth margins without microcalcifications, E TE (extra-thyroidal extension), or taller than wide shape; estimated risk of malignancy 10-20 percent ; recommend FNA at > 1 cm. * High Suspicion: Solid hypoechoic nodule or solid hypoechoic component of a partially cystic nodule with one or more of the following features: irregular margins (infiltrative, microlobulated), microc alcifications, taller than wide shape, rim calcifications with small extrusive soft tissue component, evidence of ETE (extra-thyroidal extension); estimated risk of malignancy >70-90 percent; recommend FNA at > 1 cm. NOTES: * Although a sonographically suspicious subcentimeter thyroid nodule without evidence of extrathyroi justina extension or sonographically suspicious lymph nodes may be observed with close sonographic follow -up rather than pursuing immediate FNA, patient age and preference may modify decision-making. * A > 50% interval increase in nodule volume and/or development of new suspicious sonographic featur es are felt to be a valid reasons for potential re-aspiration of a nodule previously shown to have be nign FNA cytology. Report Dictated By: Marian Crump MD at 02/08/2019 12:56 PM Report E-Signed By: Marian Crump MD at 02/08/2019 1:01 PM WSN:[email or web address]
== END ==
LOC: US 08:56
PROVIDERS: ATTEND Physician Assistant
DX: E04.1 Nontoxic single thyroid nodule (principal)
CPT/HCPCS: 76536

== ENCOUNTER → 2019-02-23 | Outpatient (CLI) | payer MEDICARE, OTHER ==
[2014-02-04 09:01] VITALS: BMI 36.4
== END ==
LOC: LAB 14:33
PROVIDERS: ATTEND Otolaryngology
DX: Z01.812 Encounter for preprocedural laboratory examination (principal); E04.1 Nontoxic single thyroid nodule
CPT/HCPCS: 36415; 85610

== ENCOUNTER 2019-02-28 01:26 | Day surgery (SDC) | payer MEDICARE, OTHER ==
[2014-02-04 09:01] VITALS: Ht 165.1 cm; Wt 86.6 kg
[~2019-02-28] VITALS: Ht 165.1 cm; Wt 86.6 kg
[2019-02-28] VITALS (7 sets, daily range): BP systolic 98–145; BP diastolic 58–94
[2019-02-28] MEDS ORDERED: LIDOCAINE MPF 1% 5 ML VIAL ONE (07:27)
[2019-02-28] MEDS ORDERED: PROPOFOL EMUL(*) 10MG/ML 20 ML 60 ML ONE (07:27)
[2019-02-28] MEDS ORDERED: LIDOCAINE/SOD BICARB 8.4% SYR ID ONE (08:45)
[2019-02-28] MEDS ORDERED: NORMOSOL R SOLN(*) 1000 ML BAG 1,000 ML IV PRN (08:45)
--- NOTE | 2019-02-28 10:13 | NUR ---
1004 SBAR REPORT WAS RECEIVED FROM DR. GARCIA AND DAMON RN. PATIENT ARRIVED IN A L. LATERAL POSITION. SHE IS BREATHING SPONTANEOUSLY AT A MODERATE RATE AND DEPTH. LUNGS ARE DIMINISHED THROUGHOUT. BOWEL SOUNDS ARE HYPERACTIVE. SHE ARRIVED ON 10 LITERS OXYMASK THAT WAS MOVED TO 2 LITERS ON ARRIVAL. UNABLE TO ASSESS PAIN OR NAUSEA. 1010 PATIENT IS BRADYCARDIAC
--- NOTE | 2019-02-28 10:18 | NUR ---
1014 PATIENT BEGAN TO WAKE UP. SHE DENIES ANY PAIN OR NAUSEA.
--- NOTE | 2019-02-28 10:21 | Short(Outpt) Discharge Summary ---
Discharge Summary Reason for Hosp/Final Diag: (1) GERD (gastroesophageal reflux disease) Status: Acute Hospital Course & Plan: EGD with biopsies completed without problems. (2) Colon cancer screening Status: Chronic Hospital Course & Plan: Colonoscopy completed without problems, normal. Departure Discharge to: Home, Self Care Discharge Instructions Home Meds Active Scripts [BiPap] No Conflict Check Prov:ROSIBEL LE APRN-C 02/02/19 Epinephrine (EPIPEN 2-CARLIE) 0.3 Mg/0.3 Ml Pen.injctr, 0.3 MG IM PRN, #1 PACK 1 Refill Prov:OCTAVIANO ANDREW PA-C 01/18/19 Epinephrine (EPINEPHRINE) 0.3 Mg/0.3 Ml Pen.injctr, 0.3 MG IM ONCE PRN for allergic reaction, #1 PEN 0 Refills Prov:ROSIBEL LE APRN-C 01/09/19 Lisinopril (LISINOPRIL) 40 Mg Tablet, 1 TAB PO QDAY, #90 TAB 3 Refills Prov:ROSIBEL LE APRNP-C 12/22/18 Levothyroxine Sodium (LEVOTHYROXINE SODIUM) 0.125 Mg Tab, 0.125 MG PO QDAY, #90 TAB 4 Refills Prov:ROSIBEL LE APRN-C 12/22/18 Sertraline Hcl (SERTRALINE HCL) 50 Mg Tablet, 1 TAB PO QDAY, #90 TAB 4 Refills Prov:ROSIBEL LE APRNP-C 12/22/18 Simvastatin (SIMVASTATIN) 20 Mg Tablet, 1 TAB PO HS, #90 TAB 4 Refills Prov:ROSIBEL LE APRN [employer]-C 12/22/18 Diet: Regular Activity: As Tolerated Special Instructions: Your upper endoscopy was completed without problems. I didn't find any abnormalities such as ulcers or inflammation. I biopsied your duodenum and stomach and I'll discuss these results with you when I see you back in my office. Your colonoscopy was also completed without problems and your prep was excellent (Good Job!!). I didn't find any polyps or other abnormalities. I recommend that your next colonoscopy be in 10 years. My office will call you in the next couple of days to schedule a follow up appointment to discuss all of these results and see how you're doing and discuss with you if any further work up or change in your treatment regimen nees to be done. You can resume taking your omeprazole once every day. Problem Qualifiers (1) GERD (gastroesophageal reflux disease): Esophagitis presence: without esophagitis Qualified Codes: K21.9 - Gastro- esophageal reflux disease without esophagitis FLORIDALMA POP MD Feb 28, 2019 10:21
--- NOTE | 2019-02-28 10:36 | NUR ---
1028 PATIENT WAS MOVED TO ROOM AIR. IV WAS SALINE LOCKED
--- NOTE | 2019-02-28 10:46 | NUR ---
1034 PATIENT BEGAN DRINKING JUICE AND IS TOLERATING THIS WELL
--- NOTE | 2019-02-28 11:15 | NUR ---
1103 PATIENT BEGAN DOING ORTHOSTATICS. SHE STATED SHE FELT SLIGHTLY DIZZY WHEN SHE SAT UP. SHE STATED IT PASSED QUICKLY 1104 PATIENT BEGAN STANDING. SHE WAS STABLE ON HER FEET 1110 IV WAS DC'D WITH CATH INTACT 1115 PATIENT WAS AMBULATORY ON DISCHARGE. SHE DENIES ANY PAIN OR NAUSEA. BOWEL SOUNDS WERE ACTIVE. LUNGS WERE CLEAR. SEE DISCHARGE ASSESSMENT.
== END 2019-02-28 11:15 | disposition home or self-care (01) ==
LOC: OR 01:26
PROVIDERS: ATTEND Surgery
DX: Z12.11 Encounter for screening for malignant neoplasm of colon (principal); R13.10 Dysphagia, unspecified
CPT/HCPCS: 00813; 43239; 83516; 87077; 88305; G0121; J2001; J2704